=== PATIENT | male | born 1995 | race Caucasian/White ===

== ENCOUNTER 2020-11-15 13:47 | Emergency (ER) | payer OTHER, SELFPAY ==
[2020-11-15 15:11] LABS: Absolute Lymphocytes (CBC) 1.5 K/uL (0.7-4.9); Basophils % 1.2 % (0-1.3); Lymphocytes % 43.8 % (15.3-44.8); MPV 7.8 fL (7.6-11.3); RBC Red Blood Cell Count 4.89 M/uL (4.33-5.43)
[2020-11-15 15:20] LABS: Protime INR 1.02
[2020-11-15 15:31] LABS: ALT/SGPT 35 U/L (12-78); AST/SGOT 22 U/L (15-37); Albumin 4.2 g/dL (3.4-5.0); Alkaline Phosphatase 71 U/L (45-117); BUN Blood Urea Nitrogen 13 mg/dL (7-18); Bicarbonate 30 mmol/L (21-32); Bilirubin Direct 0.2 mg/dL (0-0.2); Bilirubin Total 1.1 mg/dL (0.2-1.0); Glucose Level 83 mg/dL (74-106); Potassium 4.3 mmol/L (3.5-5.1); Protein, Total 7.5 g/dL (6.4-8.2); Sodium Level 142 mmol/L (136-145)
[2020-11-15 16:45] LABS: Urine Blood Negative (Negative); Urine Glucose Negative (Negative); Urine Protein Negative (Negative); Urine pH 6.5 (5.0-7.0)
[2020-11-15 17:03] LABS: Barbiturates NEGATIVE (NEGATIVE); Benzodiazepines NEGATIVE (NEGATIVE); Cocaine NEGATIVE (NEGATIVE); METHAMPHETAM NEGATIVE (NEGATIVE); Methadone NEGATIVE (NEGATIVE); Opiates NEGATIVE (NEGATIVE); Phencyclidine NEGATIVE (NEGATIVE); THC Cannibis POSITIVE (NEGATIVE)
--- NOTE | 2020-11-15 17:16 | ER ---
Nurse's Notes [facility] Name: Wade Adair Age: 25 yrs Sex: Male : 1995 Arrival Date: 11/15/2020 Time: 13:51 Bed 5 Private MD: Diagnosis: Paresthesia of skin;Abuse of non-psychoactive substances;Other stimulant abuse Presentation: 11/15 14:00 Chief complaint: Patient states: body numbness, anxiety, fatigue, "weirdness and sv soreness in my chest" and chest pressure since Tuesday. "I've been smoking a lot of weed, drinking a lot of caffeine and me and my girlfriend were messing around and then the lower half of my body went numb. I've been putting a ton of sugar in my coffee as well. And every time my body has gone numb its always been happening when a sexual thing is happening.". Coronavirus screen: Client denies travel out of the [place] in the last 14 days. At this time, the client does not indicate any symptoms associated with coronavirus-19. Ebola Screen: No symptoms or risks identified at this time. Risk Assessment: Do you want to hurt yourself or someone else? Patient reports no desire to harm self or others. Onset of symptoms was October 2020. 14:00 Method Of Arrival: Ambulatory sv 14:00 Acuity: MAMADOU 3 sv 14:01 Initial Sepsis Screen: Does the patient meet any 2 criteria? No. Patient's initial sv sepsis screen is negative. Does the patient have a suspected source of infection? No. Patient's initial sepsis screen is negative. Triage Assessment: 14:03 General: Appears in no apparent distress. comfortable, well developed, Behavior is sv calm, cooperative, appropriate for age. Pain: Complains of pain in chest. Neuro: Level of Consciousness is awake, alert, obeys commands, Oriented to person, place, time, situation, Gait is steady. Respiratory: Respiratory effort is even, unlabored. Historical: - Allergies: 14: No Known Allergies; sv - PMHx: 14: None; sv - PSHx: 14: None; sv - Social history:: Smoking status: Patient reports the use of cigarette tobacco products, smokes one pack cigarettes per day. Patient uses street drugs, marijuana. Screenin:17 Abuse screen: Denies threats or abuse. Nutritional screening: No deficits noted. em Tuberculosis screening: No symptoms or risk factors identified. Fall Risk None identified. Assessment: 14:30 General: Appears in no apparent distress. comfortable, Behavior is calm, cooperative, em appropriate for age, Denies fever. Pain: Complains of pain in chest Pain currently is 2 out of 10 on a pain scale. Neuro: Level of Consciousness is awake, alert, obeys commands, Oriented to person, place, time, situation, Reports paresthesias in right leg and left leg. Cardiovascular: Capillary refill < 3 seconds Patient's skin is warm and dry. Respiratory: Airway is patent Respiratory effort is even, unlabored, Respiratory pattern is regular, symmetrical. GI: Patient currently denies nausea, vomiting. Derm: Skin is intact, is healthy with good turgor, Skin is pink, warm \\T\\ dry. Musculoskeletal: Capillary refill < 3 seconds, Range of motion: intact in all extremities. 16:30 Reassessment: Patient appears in no apparent distress at this time. Patient and/or em family updated on plan of care and expected duration. Pain level reassessed. Patient is alert, oriented x 3, equal unlabored respirations, skin warm/dry/pink. Vital Signs: 14:00 BP 140 / 88; Pulse 79; Resp 16; Temp 97.9; Pulse Ox 99% ; Weight 74.84 kg; Height 5 ft. sv 11 in. (180.34 cm); Pain 2/10; 15:00 BP 131 / 87; Pulse 71; Resp 15; Pulse Ox 99% on R/A; em 17:00 BP 128 / 79; Pulse 81; Resp 16; Pulse Ox 97% on R/A; em 14:00 Body Mass Index 23.01 (74.84 kg, 180.34 cm) sv ED Course: 13:51 Patient arrived in ED. mr 13:58 Ori Lawrence MD is Attending Physician. kdr 14:01 Triage completed. sv 14:01 Arm band placed on. sv 14:07 Chris Richard, BHASKAR is Primary Nurse. em 14:17 Patient has correct armband on for positive identification. em 14:55 Initial lab(s) drawn, by me, sent to lab. Inserted saline lock: 20 gauge in right em antecubital area, using aseptic technique. Blood collected. 15:24 EKG done, by ED staff, reviewed by Ori Lawrence MD. em 15:35 Acetaminophen Sent. hb 15:35 Basic Metabolic Panel Sent. hb 17:22 No provider procedures requiring assistance completed. IV discontinued, intact, tr6 bleeding controlled, No redness/swelling at site. Pressure dressing applied. Administered Medications: No medications were administered Outcome: 17:16 Discharge ordered by . kdr 17:27 Discharged to home ambulatory. em 17:27 Condition: good 17:27 Discharge instructions given to patient, Instructed on discharge instructions, follow up and referral plans. Demonstrated understanding of instructions, follow-up care. 17:30 Patient left the ED. em Signatures: Jayda Taylor, RN RN sv Ori Lawrence MD MD kdr Liz ArdonChris RN RN em Anisha Diallo RN RN Luz Elena Waters RN RN tr6 Corrections: (The following items were deleted from the chart) 14:03 14:00 Chief complaint: Patient states: body numbness, anxiety, fatigue, "weirdness and sv soreness in my chest" and chest pressure since Tuesday. sv 14:03 14:00 Pulse 79bpm; Resp 16bpm; Pulse Ox 99%; Temp 97.9F; sv sv 14:04 14:00 Chief complaint: Patient states: body numbness, anxiety, fatigue, "weirdness and sv soreness in my chest" and chest pressure since Tuesday. "I've been smoking a lot of weed, drinking a lot of caffeine and me and my girlfriend were messing around and then the lower half of my body went numb. I've been putting a ton of sugar in my coffee as well." sv
--- NOTE | 2020-11-15 17:17 | EDPHYS ---
Physician Documentation [facility] Name: Wade Adair Age: 25 yrs Sex: Male : 1995 Arrival Date: 11/15/2020 Time: 13:51 Bed 5 Private MD: ED Physician Ori Lawrence HPI: 11/15 17:00 This 25 yrs old Male presents to ER via Ambulatory with complaints of Body kdr Numbness \T\ poly substance abuse. 17:00 The patient has been smoking a pack a day, drinking a lot of coffee, moderate kdr quantities of smoking cannabis calvin intercourse or self flagellation and experienced numbness of his body. At time, this numbness was focal and other times, it was more global. He has also noted that he has felt like his head was goiing to pop off. He is currently not experiencing any of these s/s but his girlfriend coaxed him to come for evaluation. Onset: The symptoms/episode began/occurred suddenly, The first episode was about eight days ago and then again in the last few days. Since he began to have these experiences, he has diminished the use of all of the previously mentioned substances. Severity of symptoms: At their worst the symptoms were incapacitating in the emergency department the symptoms have resolved. The patient has not experienced similar symptoms in the past. The patient has not recently seen a physician. Historical: - Allergies: 14:01 No Known Allergies; sv - PMHx: 14: None; sv - PSHx: 14:01 None; sv - Social history:: Smoking status: Patient reports the use of cigarette tobacco products, smokes one pack cigarettes per day. Patient uses street drugs, marijuana. ROS: 17:00 Constitutional: Negative for fever, chills, and weight loss, Eyes: Negative for injury, kdr pain, redness, and discharge, ENT: Negative for injury, pain, and discharge, Neck: Negative for injury, pain, and swelling, Cardiovascular: Negative for chest pain, palpitations, and edema, Abdomen/GI: Negative for abdominal pain, nausea, vomiting, diarrhea, and constipation, Back: Negative for injury and pain, : Negative for injury, bleeding, discharge, and swelling, MS/Extremity: Negative for injury and deformity, Skin: Negative for injury, rash, and discoloration, Psych: Negative for depression, anxiety, suicide ideation, homicidal ideation, and hallucinations, Allergy/Immunology: Negative for hives, rash, and allergies, Endocrine: Negative for neck swelling, polydipsia, polyuria, polyphagia, and marked weight changes, Hematologic/Lymphatic: Negative for swollen nodes, abnormal bleeding, and unusual bruising. 17:00 Respiratory: Negative for shortness of breath, cough, wheezing, and pleuritic chest pain. 17:00 Respiratory: Positive for 17:00 Neuro: Positive for altered mental status, dizziness, headache, numbness, speech changes, tingling, weakness. Exam: 15:46 ECG was reviewed by the Attending Physician. kdr 17:00 Constitutional: This is a well developed, well nourished patient who is awake, alert, kdr and in no acute distress. Head/Face: Normocephalic, atraumatic. Eyes: Pupils equal round and reactive to light, extra-ocular motions intact. Lids and lashes normal. Conjunctiva and sclera are non-icteric and not injected. Cornea within normal limits. Periorbital areas with no swelling, redness, or edema. Neck: Trachea midline, no thyromegaly or masses palpated, and no cervical lymphadenopathy. Supple, full range of motion without nuchal rigidity, or vertebral point tenderness. No Meningismus. Chest/axilla: Normal chest wall appearance and motion. Nontender with no deformity. No lesions are appreciated. Cardiovascular: Regular rate and rhythm with a normal S1 and S2. No gallops, murmurs, or rubs. Normal PMI, no JVD. No pulse deficits. Respiratory: Lungs have equal breath sounds bilaterally, clear to auscultation and percussion. No rales, rhonchi or wheezes noted. No increased work of breathing, no retractions or nasal flaring. Abdomen/GI: Soft, non-tender, with normal bowel sounds. No distension or tympany. No guarding or rebound. No evidence of tenderness throughout. Back: No spinal tenderness. No costovertebral tenderness. Full range of motion. Skin: Warm, dry with normal turgor. Normal color with no rashes, no lesions, and no evidence of cellulitis. MS/ Extremity: Pulses equal, no cyanosis. Neurovascular intact. Full, normal range of motion. Neuro: Awake and alert, GCS 15, oriented to person, place, time, and situation. Cranial nerves II-XII grossly intact. Motor strength 5/5 in all extremities. Sensory grossly intact. Cerebellar exam normal. Normal gait. Psych: Awake, alert, with orientation to person, place and time. Behavior, mood, and affect are within normal limits. Vital Signs: 14:00 BP 140 / 88; Pulse 79; Resp 16; Temp 97.9; Pulse Ox 99% ; Weight 74.84 kg; Height 5 ft. sv 11 in. (180.34 cm); Pain 2/10; 15:00 BP 131 / 87; Pulse 71; Resp 15; Pulse Ox 99% on R/A; em 17:00 BP 128 / 79; Pulse 81; Resp 16; Pulse Ox 97% on R/A; em 14:00 Body Mass Index 23.01 (74.84 kg, 180.34 cm) sv MDM: 17:00 Data reviewed: vital signs, nurses notes, lab test result(s). Counseling: I had a kdr detailed discussion with the patient and/or guardian regarding: the historical points, exam findings, and any diagnostic results supporting the discharge/admit diagnosis, lab results, radiology results, the need for outpatient follow up. 17:[address] [facility] 11/15 14:47 Order name: Acetaminophen [facility] 11/15 14:47 Order name: Basic Metabolic Panel [facility] 11/15 14:47 Order name: CBC with Diff [facility] 11/15 14:47 Order name: ETOH Level; Complete Time: 16:52 [facility] 11/15 14:47 Order name: Hepatic Function; Complete Time: 16:52 [facility] 11/15 14:47 Order name: PT-INR; Complete Time: 16:52 [facility] 11/15 14:47 Order name: Ptt, Activated; Complete Time: 16:52 [facility] 11/15 14:47 Order name: Salicylate; Complete Time: 16:52 [facility] 11/15 14:47 Order name: Urine Drug Screen; Complete Time: 17:14 [facility] 11/15 14:47 Order name: EKG; Complete Time: 14:48 [facility] 11/15 14:47 Order name: EKG - Nurse/Tech; Complete Time: 17:27 [facility] 11/15 14:47 Order name: Acetaminophen Level; Complete Time: 16:52 [facility] 11/15 14:47 Order name: Basic Metabolic Panel; Complete Time: 16:52 [facility] 11/15 16:45 Order name: Urine Dipstick-Ancillary; Complete Time: 16:52 [facility] 11/15 14:47 Order name: IV Saline Lock; Complete Time: 16:57 [facility] 11/15 14:47 Order name: Labs collected and sent; Complete Time: 16:57 [facility] 11/15 14:47 Order name: Urine Dipstick-Ancillary (obtain specimen); Complete Time: 17:20 [facility] EC:46 Rate is 83 beats/min. Rhythm is regular, Sinus Rhythm with No ectopy. QRS [place] is kdr Normal. CA interval is normal. QRS interval is normal. Clinical impression: NSR w/ Non-specific ST/T Changes. Administered Medications: No medications were administered Disposition: 11/15/20 17:16 Discharged to Home. Impression: Paresthesia of skin, Abuse of non-psychoactive substances, Other stimulant abuse. - Condition is Stable. - Discharge Instructions: Substance Use Disorder, Steps to Quit Smoking, Buay-ne-Tner, Paresthesia, [id number], What You Need To Know About Illegal Drug Use and Dependence, Youth. - Medication Reconciliation Form, Thank You Letter form. - Follow up: Private Physician; When: 2 - 3 days; Reason: If symptoms return, Further diagnostic work-up, Recheck today's complaints, Continuance of care, Re-evaluation by your physician. - Problem is new. - Symptoms have improved. Signatures: Dispatcher [employer] [facility] Jayda Taylor RN RN Ori Lawrence MD MD [facility] Chris Richard RN RN em Corrections: (The following items were deleted from the chart) 14:47 14:47 Suicide Screening ([place]) ordered. [facility] em 17:30 17:16 11/15/2020 17:16 Discharged to Home. Impression: Paresthesia of skin; Abuse of em non-psychoactive substances; Other stimulant abuse. Condition is Stable. Forms are Medication Reconciliation Form, Thank You Letter, Antibiotic Education, Prescription Opioid Use. Follow up: Private Physician; When: 2 - 3 days; Reason: If symptoms return, Further diagnostic work-up, Recheck today's complaints, Continuance of care, Re-evaluation by your physician. Problem is new. Symptoms have improved. kdr
[2020-11-15 17:39] VITALS: TEMP 97.9
[2020-11-15 17:41] LABS: Blood Morphology Comment NOT SEEN (NOT SEEN); Platelet Estimate ADEQ; White Blood Cell Scan OK (OK)
[2020-11-15 17:42] VITALS: BP 128/79; O2SAT 97
== END 2020-11-15 17:30 | disposition home or self-care (01) ==
LOC: ER 13:47
DX: R20.0 Anesthesia of skin (principal); F15.10 Other stimulant abuse, uncomplicated; F55.8 Abuse of other non-psychoactive substances; F17.210 Nicotine dependence, cigarettes, uncomplicated
CPT/HCPCS: 36415; 80048; 80076; 80307; 80320; 80329; 81003; 85025; 85610; 85730; 93005; 99283